=== PATIENT | male | born 1975 | race Caucasian/White ===

== ENCOUNTER 2023-05-04 13:53 | Inpatient (IN) | payer OTHER ==
[2023-05-04] MEDS ORDERED: Ketorolac 30 MG/ML SDV IM ONE (14:28)
[2023-05-04 15:06] LABS: HEMATOCRIT 42.7 % (38.3-50.1); HEMOGLOBIN 14.2 g/dL (12.9-17.7); MEAN CORPUSCULAR HEMOGLOBIN 29.6 pg (27.0-33.3); MEAN CORPUSCULAR HGB CONC 33.3 g/dL (28.7-35.3); MEAN CORPUSCULAR VOLUME 88.9 fL (80.8-98.7); RED BLOOD CELL COUNT 4.8 x10(6)uL (3.90-5.90); RED CELL DISTRIBUTION WIDTH 14.5 % (12.4-15.0)
[2023-05-04 15:10] LABS: BLOOD UREA NITROGEN,BUN 12 mg/dL (7-18); BUN/CREATININE RATIO 10.9 (9-20); CALCIUM 9.1 mg/dL (8.6-10.2); CARBON DIOXIDE,CO2 30 mmol/L (21-32); CHLORIDE,CL 98 mmol/L (100-110); CREATININE 1.1 mg/dL (0.70-1.30); EST CRCL DRUG DOSING (CG) 67.27 mL/min; ESTIMATED GFR 82 mL/min (>60); GLUCOSE RANDOM 116 mg/dL (80-116); POTASSIUM,K 3.4 mmol/L (3.5-5.3); SODIUM,NA 135 mmol/L (135-145)
[2023-05-04] MEDS ORDERED: Sodium Chloride 0.9% 10 ML Syringe FLUSH PRN (16:04)
[2023-05-04] MEDS ORDERED: cefTRIAXone 2 GM in Sodium Chloride 0.9% 50 ML IV ONE (16:08)
[2023-05-04] MEDS ORDERED: Sodium Chloride 0.9% 1,000 ML IV ONE (16:08)
[2023-05-04] MEDS ORDERED: Sodium Chloride 0.9% 1,000 ML IV SCH (16:15)
[2023-05-04] MEDS ORDERED: cefTRIAXone 2 GM Vial IVPUSH ONE (16:30)
[2023-05-04] MEDS ORDERED: VANCOmycin 2 GM/400 ML 2 GM in Premix Bag 1 BAG IV ONE (17:00)
[2023-05-04 17:47] LABS: BASOPHILS ABSOLUTE AUTO 0.1 x10-3/uL (0.0-0.3); BASOPHILS PERCENT AUTO 0.5 % (0.3-3.8); EOSINOPHILS ABSOLUTE AUTO 0.1 x10-3/uL (0.0-0.6); EOSINOPHILS PERCENT AUTO 0.8 % (0.1-6.8); HEMATOCRIT 39.7 % (38.3-50.1); HEMOGLOBIN 12.9 g/dL (12.9-17.7); LYMPHOCYTES ABSOLUTE AUTO 2.1 x10-3/uL (0.5-4.5); LYMPHOCYTES PERCENT AUTO 13.8 % (15.8-45.3); MEAN CORPUSCULAR HEMOGLOBIN 28.9 pg (27.0-33.3); MEAN CORPUSCULAR HGB CONC 32.5 g/dL (28.7-35.3); MEAN CORPUSCULAR VOLUME 89.1 fL (80.8-98.7); MEAN PLATELET VOLUME 6.9 fL (6.7-11.0); MONOCYTES ABSOLUTE AUTO 1.6 x10-3/uL (0.0-1.2); MONOCYTES PERCENT AUTO 10.6 % (5.5-15.2); NEUTROPHILS ABSOLUTE AUTO 11.3 x10-3/uL (1.7-6.9); NEUTROPHILS PERCENT AUTO 74.3 % (40.3-71.8); PLATELET COUNT,PLT 366 x10(3)uL (117-477); RED BLOOD CELL COUNT 4.45 x10(6)uL (3.90-5.90); RED CELL DISTRIBUTION WIDTH 14.4 % (12.4-15.0); WHITE BLOOD CELL COUNT,WBC 15.2 x10-3/uL (3.2-10.1)
[2023-05-04 17:54] LABS: BLOOD UREA NITROGEN,BUN 13 mg/dL (7-18); BUN/CREATININE RATIO 11.8 (9-20); CALCIUM 8.4 mg/dL (8.6-10.2); CARBON DIOXIDE,CO2 31 mmol/L (21-32); CHLORIDE,CL 102 mmol/L (100-110); CREATININE 1.1 mg/dL (0.70-1.30); EST CRCL DRUG DOSING (CG) 67.27 mL/min; ESTIMATED GFR 82 mL/min (>60); GLUCOSE RANDOM 109 mg/dL (80-116); POTASSIUM,K 3.6 mmol/L (3.5-5.3); SODIUM,NA 138 mmol/L (135-145)
[2023-05-04 18:01] LABS: A/G RATIO 0.6; ALANINE AMINOTRANSFERASE,ALT 14 U/L (12-36); ALBUMIN 2.4 g/dL (3.5-5.2); ALKALINE PHOSPHATASE 67 IU/L (56-112); ASPARTATE AMNIOTRANSFERASE,AST 14 IU/L (5-25); BILIRUBIN TOTAL 0.2 mg/dL (0.1-1.3); PROTEIN TOTAL,TP 6.5 g/dL (6.0-8.0)
[2023-05-04 18:02] LABS: LACTIC ACID 0.7 mmol/L (0.4-2.0)
[2023-05-04 18:09] LABS: BILIRUBIN,URINE NEGATIVE (NEGATIVE); GLUCOSE,URINE NORMAL (NORMAL); KETONES,URINE NEGATIVE (NEGATIVE); LEUKOCYTE ESTERASE,URINE NEGATIVE (NEGATIVE); NITRITE,URINE NEGATIVE (NEGATIVE); OCCULT BLOOD,URINE NEGATIVE (NEGATIVE); PROTEIN,URINE NEGATIVE (NEGATIVE); UROBILINOGEN,URINE NORMAL (NEGATIVE)
[2023-05-04 18:11] LABS: APPEARANCE,URINE CLEAR (CLEAR); COLOR,URINE YELLOW (YELLOW); RBC,URINE NOT SEEN (0-5); SQUAMOUS EPITHELIAL CELLS,UR OCCASIONAL (NS,R,O); WBC,URINE 0-5 (0-5)
[2023-05-04 18:12] LABS: BACTERIA,URINE OCCASIONAL (NS)
[2023-05-04] MEDS ORDERED: Nicotine 21 MG/24 Hr Patch TRDERM SCH (18:15)
[2023-05-04] MEDS ORDERED: Acetaminophen 325 MG Tab PO PRN (18:27)
[2023-05-04] MEDS: Sodium Chloride 0.9% 1,000 ML IV SCH (18:37)
[2023-05-04] MEDS ORDERED: oxyCODONE 5 MG Tab PO PRN (19:11)
[2023-05-04] MEDS ORDERED: Polyethylene Glycol 3350 Powder 17 GM Packet PO PRN (19:46)
[2023-05-04] MEDS ORDERED: Ketorolac 30 MG/ML SDV IVPUSH PRN (20:00)
[2023-05-04] MEDS: Ibuprofen 200 MG Tab PO SCH (20:14)
[2023-05-04] MEDS: Acetaminophen 325 MG Tab PO SCH (21:23)
[2023-05-05] MEDS: Ibuprofen 200 MG Tab PO SCH ×3 (00:44→12:30)
[2023-05-05] MEDS: Sodium Chloride 0.9% 1,000 ML IV SCH ×2 (02:39→12:28)
[2023-05-05] MEDS: Acetaminophen 325 MG Tab PO SCH ×3 (02:42→15:19)
[2023-05-05] MEDS ORDERED: VANCOmycin 1 GM/200 ML 1 GM in Premix Bag 1 BAG IV SCH (05:00)
[2023-05-05 07:15] LABS: HEMATOCRIT 40.4 % (38.3-50.1); HEMOGLOBIN 13.3 g/dL (12.9-17.7); MEAN CORPUSCULAR HEMOGLOBIN 29.7 pg (27.0-33.3); MEAN CORPUSCULAR HGB CONC 32.9 g/dL (28.7-35.3); MEAN CORPUSCULAR VOLUME 90.2 fL (80.8-98.7); MEAN PLATELET VOLUME 8.2 fL (6.7-11.0); PLATELET COUNT,PLT 323 x10(3)uL (117-477); RED BLOOD CELL COUNT 4.48 x10(6)uL (3.90-5.90); RED CELL DISTRIBUTION WIDTH 14.7 % (12.4-15.0); WHITE BLOOD CELL COUNT,WBC 15.6 x10-3/uL (3.2-10.1)
[2023-05-05 07:31] LABS: EOSINOPHILS PERCENT MAN 4 % (0-5); LYMPHOCYTES PERCENT MAN 16 % (13-37); MONOCYTES PERCENT MAN 5 % (4-12); SEG NEUTROPHILS PERCENT MAN 75 % (46-82)
[2023-05-05] MEDS ORDERED: ceFAZolin 2 GM Vial IVPUSH SCH (08:15)
[2023-05-05] MEDS ORDERED: Cefepime 2 GM Vial IVPUSH SCH (09:00)
[2023-05-05] MEDS ORDERED: Cefepime 1 GM Vial IVPUSH SCH (09:00)
[2023-05-05] MEDS ORDERED: Sennosides/Docusate Sodium 50-8.6 MG Tab PO SCH (09:00)
[2023-05-05] MEDS: Nicotine Polacrilex 2 MG Gum CHEW PRN ×3 (10:32→15:19)
[2023-05-05] MEDS ORDERED: Sulfamethoxazole/Trimethoprim 800-160 MG Tab PO SCH (17:00)
[2023-05-05] MEDS ORDERED: Nicotine 21 MG/24 Hr Patch TRDERM SCH (18:00)
== END 2023-05-05 17:03 | disposition home or self-care (01) | DRG 872 ==
LOC: FB.ED 13:53 → FB.MS 18:20
PROVIDERS: ADMIT Family Medicine; ATTEND Family Medicine
DX: A41.9 Sepsis, unspecified organism (principal); L03.319 Cellulitis of trunk, unspecified; L02.219 Cutaneous abscess of trunk, unspecified; L03.313 Cellulitis of chest wall; F17.200 Nicotine dependence, unspecified, uncomplicated; E66.9 Obesity, unspecified; Z79.899 Other long term (current) drug therapy; Z68.36 Body mass index [BMI] 36.0-36.9, adult; Z86.14 Personal history of Methicillin resistant Staphylococcus aureus infection
CPT/HCPCS: 36415; 71250; 80048; 80053; 80202; 81001; 82550; 83605; 84484; 85025; 85027; 86140; 87040; 93005; 96361; 96365; 96372; 96375; 99222; 99238; 99285-25; A9270-GY; J0692; J0696; J1885; J3370; J7030